=== PATIENT | male | born 1990 | race Caucasian/White ===

== ENCOUNTER 2020-08-14 15:57 | Emergency (ER) | payer OTHER ==
[2020-08-14] MEDS ORDERED: TORAdol 30 mg Injection IM ONE (16:56)
[2020-08-14] MEDS ORDERED: Cleocin Phosphate IV 600 MG/4 ML IM STA (16:57)
--- NOTE | 2020-08-14 17:02 | ERPHSYRPT ---
- History of Present Illness Time Seen by Provider: 08/14/20 16:46 Source: patient Exam Limitations: no limitations Physician History: 30 years old male with a history of drug abuse in the past, multiple bad dentition presented in the ER with chief complaint of right upper jaw swelling gradually worsening for the last 4 days associated with sharp shooting/throbbing pain moderate to severe intensity, aggravated with movements of jaw/palpation. Has been using [id number] medication with no significant relief. Denies any fever or chills. Patient report having multiple similar episodes in the past. Timing/Duration: gradual onset, days (4) Severity: moderate ENT Location: facial, dental Prearrival Treatment: over the counter meds Associated Symptoms: facial pain/swelling, jaw pain, tooth pain, No fever, No chills Allergies/Adverse Reactions: codeine Allergy (Verified 08/14/20 16:54) Penicillins Allergy (Verified 08/14/20 16:54) Travel Risk - International Travel Have you traveled outside of the country in past 3 weeks: No - Coronavirus Screening Are you exhibiting any of the following symptoms?: No - Review of Systems Constitutional: No Symptoms Eyes: No Symptoms Ears, Nose, & Throat: Mouth Swelling, Loose Teeth Respiratory: No Symptoms Cardiac: No Symptoms Abdominal/Gastrointestinal: No Symptoms Musculoskeletal: No Symptoms Skin: No Symptoms Neurological: No Symptoms Psychological: No Symptoms Hematologic/Lymphatic: No Symptoms Immunological/Allergic: No Symptoms - Nursing Vital Signs Nursing Vital Signs: Initial Vital Signs Temperature 98.0 F 08/14/20 16:56 Pulse Rate 67 08/14/20 16:56 Respiratory Rate 16 08/14/20 16:56 Blood Pressure 144/87 08/14/20 16:56 O2 Sat by Pulse Oximetry 97 08/14/20 16:56 Pain Scale Pain Intensity 8 - Physical Exam General Appearance: no apparent distress, alert Eye Exam: bilateral eye: normal inspection, PERRL, EOMI Ear Exam: bilateral ear: auricle normal, canal normal, TM normal Nasal Exam: normal inspection Throat Exam: dental tenderness (Periodontitis, swollen gingiva, negative fluctuation in the right upper. 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, normal mood/affect Skin Exam: normal color SpO2 Interpretation: normal O2 Delivery: Room Air Ordered Tests: Medication Summary Discontinued Medications Generic Name Dose Route Start Last Admin Trade Name Freq PRN Reason Stop Dose Admin Clindamycin Phosphate 600 mg 08/14/20 16:57 08/14/20 17:06 Cleocin Phosphate Iv 600 Mg/4 Ml IM 08/14/20 16:58 600 mg ONCE STA Administration Clindamycin Phosphate Confirm 08/14/20 17:04 Cleocin Phosphate Iv 600 Mg/4 Ml Administered 08/14/20 17:05 Dose 600 mg .ROUTE .STK-MED ONE Ketorolac Tromethamine 30 mg 08/14/20 16:56 08/14/20 17:07 Toradol 30 Mg Injection IM 08/14/20 16:57 30 mg STAT ONE Administration Ketorolac Tromethamine Confirm 08/14/20 17:04 Toradol 30 Mg Injection Administered 08/14/20 17:05 Dose 30 mg .ROUTE .STK-MED ONE - Progress Progress: pain not gone completely Progress Note: 08/14/20 17:02 Patient has periodontitis with gingival swelling closed with developing abscess. Does not have any fluctuation at present. I have given him a shot of Toradol and clindamycin and will continue with clindamycin and ibuprofen to go home. Recommended outpatient dental follow-up. Discussed signs symptoms of worsening needing return to ER which he seems understanding. Counseled pt/family regarding: diagnosis, need for follow-up - Departure Departure Disposition: Home Clinical Impression: Dental infection Condition: Stable Critical Care Time: No Referrals: JUAN WHALEN MD [Primary Care Provider] - Follow Up with PCP/3 days [facility] D[facility] [NON-STAFF PHY W/O PRIVILEGES] - (3DAYS FOR RE EVALUATION) Instructions: Tooth Abscess (DC) Additional Instructions: Take Tylenol/ibuprofen as needed for pain. Continue with antibiotics. Follow- up with your dentist for reevaluation. Return to ER for worsening pain swelling or difficulty movements of jaw or if develop fever chills. Prescriptions: Ibuprofen 600 mg PO Q6HPRN PRN 10 Days #20 tablet PRN Reason: Pain Clindamycin HCl 150 mg [Cleocin 150 mg Capsule] 2 cap PO QID #56 capsule
[2020-08-14 17:03] VITALS: BP 144/87; PULSE 67; O2SAT 97
[2020-08-14] MEDS ORDERED: TORAdol 30 mg Injection ONE (17:04)
[2020-08-14] MEDS ORDERED: Cleocin Phosphate IV 600 MG/4 ML ONE (17:04)
== END 2020-08-14 17:22 | disposition home or self-care (01) ==
LOC: ED 15:57
DX: K04.7 Periapical abscess without sinus (principal)
CPT/HCPCS: 96372; 99283; J1885